=== PATIENT | female | born 1985 | race Caucasian/White ===

== ENCOUNTER → 2017-06-17 | Outpatient (CLI) | payer OTHER ==
--- NOTE | 2017-06-17 11:11 | REP ---
RIGHT FOOT, FOUR VIEWS: HISTORY: Pain. There is no acute fracture or dislocation. The joint spaces are normal in appearance. IMPRESSION: There is no acute fracture or dislocation. Signed by Tong Coley MD 06/17/2017 11:35 A
== END ==
LOC: M WUC 09:21
PROVIDERS: ATTEND Physician Assistant
DX: M79.671 Pain in right foot (principal)

== ENCOUNTER → 2017-06-22 | Outpatient (REF) | payer OTHER | LOC: M LAB REF 16:57 | PROVIDERS: ATTEND Family Medicine | DX: Z01.419 Encounter for gynecological examination (general) (routine) without abnormal findings (principal); Z11.3 Encounter for screening for infections with a predominantly sexual mode of transmission | CPT/HCPCS: 87070; 87491; 87591; G0123 ==

== ENCOUNTER → 2017-06-23 | Outpatient (REF) | payer OTHER | LOC: M LAB REF 16:51 | PROVIDERS: ATTEND Family Medicine | DX: M54.5 Low back pain (principal) ==

== ENCOUNTER 2018-08-12 12:05 | Emergency (ER) | payer OTHER ==
[2018-08-12] MEDS: IBUPROFEN 800 MG TAB PO (12:28)
== END 2018-08-12 13:08 | disposition home or self-care (01) ==
LOC: M ED 12:05
DX: S99.912A Unspecified injury of left ankle, initial encounter (principal); X50.1XXA Overexertion from prolonged static or awkward postures, initial encounter; Y92.89 Other specified places as the place of occurrence of the external cause
CPT/HCPCS: 73610

== ENCOUNTER → 2021-05-27 | Outpatient (CLI) | payer OTHER ==
--- NOTE | 2021-05-27 16:48 | REP ---
INDICATION: TASNEEM DIAG MAMMO/LEFT BREAST LUMP. COMPARISON: This is the patient's baseline mammogram. Left breast ultrasound, same day. TECHNIQUE: 2D and 3D bilateral craniocaudal and oblique views of the breast were obtained. 2D Focal compression magnification views of the left breast in the CC and MLO orientations were also obtained. FINDINGS: The patient is a 36-year-old with no personal or family history of breast cancer. The patient has no history of breast surgery. The patient presents with a palpable abnormality in the left breast. The Volpara volumetric breast density pattern is A, the breasts are almost entirely fatty. There is a radiopaque triangle marking the location of the palpable abnormality in the upper inner quadrant of the left breast. There are no suspicious calcifications, dominant masses, areas of architectural distortion or focal asymmetry is in either breast. There is no mammographic correlate to the palpable abnormality in the left breast. Focal ultrasound evaluation of the area of the palpable abnormality in the upper inner quadrant of the left breast reveals no cystic or solid mass. IMPRESSION: BIRADS/ACR 1: Negative. This patient's Tyrer-Cuzick lifetime breast cancer risk assessment score is 14.9%. This mammogram was interpreted with the aid of an FDA-approved computer-aided detection system. The patient did not state whether or not she had a recent clinical breast exam. The patient letter being requested is M1. RECOMMENDATION: Repeat screening mammography recommended 1 year (for women over 40). <Electronically signed by Naseem Piedra > 05/27/21 [id number]
--- NOTE | 2021-05-27 16:51 | REP ---
INDICATION: Palpable abnormality in the upper inner quadrant of the left breast. COMPARISON: Bilateral screening mammogram and left diagnostic mammogram, same day. TECHNIQUE: Targeted ultrasound evaluation of the area of the palpable abnormality in the left breast was performed. FINDINGS: The patient is a 36-year-old with no personal or family history of breast cancer. The patient has no history of breast surgery. The patient presents with a palpable abnormality in the left breast. The Volpara volumetric breast density pattern is A, the breasts are almost entirely fatty. There is a radiopaque triangle marking the location of the palpable abnormality in the upper inner quadrant of the left breast. There are no suspicious calcifications, dominant masses, areas of architectural distortion or focal asymmetry is in either breast. There is no mammographic correlate to the palpable abnormality in the left breast. Focal ultrasound evaluation of the area of the palpable abnormality in the upper inner quadrant of the left breast reveals no cystic or solid mass. IMPRESSION: There is no cystic or solid mass in the area of the palpable abnormality in the left breast. BI-RADS category 1: Negative. RECOMMENDATION: Screening mammogram at age 38. <Electronically signed by Naseem Piedra > 05/27/21 [id number]
== END ==
LOC: M WHC 13:46
PROVIDERS: ATTEND Pediatrics
DX: R92.8 Other abnormal and inconclusive findings on diagnostic imaging of breast (principal)
CPT/HCPCS: 76642; 77066; G0279

== ENCOUNTER → 2023-05-20 | Outpatient (REF) | payer OTHER ==
[2023-05-20 20:26] LABS: BASO # 0.1 10^3/uL (0.0-0.2); EOS # 0.3 10^3/uL (0.0-0.5); EOS % 3.2 % (0.0-3.0); HEMATOCRIT 46.1 % (36.0-47.0); HEMOGLOBIN 15.9 g/dl (12.0-15.5); LYMPH # 2.1 10^3/uL (1.5-5.0); LYMPH % 26.7 % (24.0-44.0); MEAN CORPUSCULAR HEMOGLOBIN 30.1 pg (27.0-33.0); MEAN CORPUSCULAR HGB CONC 34.5 g/dl (32.0-36.5); MEAN CORPUSCULAR VOLUME 87.3 fl (80.0-96.0); MONO # 0.7 10^3/uL (0.0-0.8); MONO % 8.1 % (2.0-8.0); NEUTROPHILS # 4.9 10^3/uL (1.5-8.5); NEUTROPHILS % 60.8 % (36.0-66.0); PLATELET COUNT, AUTOMATED 298 10^3/uL (150-450); RED BLOOD COUNT 5.28 10^6/uL (4.00-5.40)
[2023-05-20 20:58] LABS: ALKALINE PHOSPHATASE 106 U/L (46-116); ALT/SGPT 151 U/L (7.0-40); AST/SGOT 62 U/L (<34); BILIRUBIN,TOTAL 0.7 MG/DL (0.3-1.2); BLOOD UREA NITROGEN 15 MG/DL (9-23); CARBON DIOXIDE LEVEL 26 MMOL/L (20-31); CHLORIDE LEVEL 102 MMOL/L (98-107); CREATININE FOR GFR 0.59 MG/DL (0.55-1.30); GLOMERULAR FILTRATION RATE > 60.0 (>60); GLUCOSE, FASTING 131 MG/DL (60-100); POTASSIUM SERUM 4.3 MMOL/L (3.5-5.1); SODIUM LEVEL 138 MMOL/L (136-145); TOTAL PROTEIN 7.1 G/DL (5.7-8.2)
[2023-05-22 23:07] LABS: ANA (HEP2) Negative (.); CYCLIC CITRULLINATED PEPTIDE < 1 units (0-19)
[2023-05-23 18:56] LABS: RHEUMATOID FACTOR QUANT < 3.5 IU/ML (<14)
== END ==
LOC: M LAB REF 16:45
PROVIDERS: ATTEND Pediatrics
DX: M25.50 Pain in unspecified joint (principal); E55.9 Vitamin D deficiency, unspecified

== ENCOUNTER → 2023-06-19 | Outpatient (REF) | payer OTHER ==
[2023-06-19 17:43] LABS: CREATININE, URINE 221.4 MG/DL
[2023-06-19 17:48] LABS: ALBUMIN 4.3 G/DL (3.2-5.2); BILIRUBIN,DIRECT 0.3 MG/DL (<0.4); BILIRUBIN,TOTAL 0.9 MG/DL (0.3-1.2); TOTAL PROTEIN 7.6 G/DL (5.7-8.2)
[2023-06-19 17:54] LABS: MAU/CREAT RATIO 224.4 MCG/MG (0.0-30.0)
== END ==
LOC: M LAB REF 16:14
PROVIDERS: ATTEND Pediatrics
DX: E11.69 Type 2 diabetes mellitus with other specified complication (principal); R74.01 Elevation of levels of liver transaminase levels